=== PATIENT | male | born 1940 | race Caucasian/White ===

== ENCOUNTER → 2017-10-02 07:41 | Outpatient (CLI) | payer MEDICARE, OTHER, SELFPAY ==
[2017-10-02 08:26] LABS: Hemoglobin A1C% w Est Avg Glu 4.9 % (4.0-6.0)
[2017-10-02 08:48] LABS: BUN Creatinine Ratio 21.8 (6-22); Blood Urea Nitrogen 48 mg/dL (9-20); Calcium 8.9 mg/dL (8.4-10.2); Carbon Dioxide 20 mmol/L (22-32); Chloride 99 mmol/L (98-107); Estimated Glomerular Filt Rate 29.3 mL/min (>60); Glucose 60 mg/dL (80-110); HEMOLYSIS < 15 (0-50); Potassium 4.2 mmol/L (3.4-5.1); Sodium 132 mmol/L (137-145)
== END ==
PROVIDERS: Family Provider Internal Medicine; PCP Internal Medicine; Visit Provider Internal Medicine
DX: E11.22 Type 2 diabetes mellitus with diabetic chronic kidney disease (principal); I12.9 Hypertensive chronic kidney disease with stage 1 through stage 4 chronic kidney disease, or unspecified chronic kidney disease; N18.3 Chronic kidney disease, stage 3 (moderate)
CPT/HCPCS: 36415; 80048; 83036

== ENCOUNTER → 2017-12-18 12:27 | Outpatient (CLI) | payer MEDICARE, OTHER, SELFPAY ==
--- NOTE | 2017-12-18 | DI.CT.S_ITS ---
PROCEDURE: CT LUMBAR SPINE WO CON INDICATIONS: ARTHRODESIS TECHNIQUE: Noncontrast 3 mm thick sections acquired from the T12 level to the sacrum. Sagittal and coronal reformats were constructed. For radiation dose reduction, the following was used: automated exposure control. COMPARISON: [facility], CR, SPINE LUMB 2 OR 3VW, 11/26/2014, 11:17. [facility], CR, XR LUMBAR SPINE 2 OR 3 VIEWS, 12/13/2017, 9:17. [facility], MR, L-SPINE W&WO CONTRAST, 05/14/2014, 11:00. FINDINGS: Image quality: Excellent. Bones: Dextroconvex scoliotic curvature is present with apex at L1-2. Posterior fusion is present from L1-L5. Transitional anatomy is present with an appearance of sacralization of the fifth vertebral body. Hardware is intact. It is noted that the left pedicular screw at L4 is along the lateral aspect of the spinal canal. There is trace retrolisthesis of L1 on L2, L3 on L4, L4 on L5. Multilevel significant degenerative endplate changes are present. Compression fracture is present at L2, unchanged. Significant artifact from prosthesis is present, limiting evaluation of spinal canal. There is felt to be a least moderate stenosis at L1-2, mild to moderate at L2-3, moderate L3-4, L4-5. Moderate bilateral foraminal narrowing is present at L1-2, severe bilateral L2-3, L3-4, L4-5 and L5-S1. Severe stenosis is present at T12-L1. Soft tissues: No retroperitoneal masses or hematomas. Visualized aorta is normal in caliber. IMPRESSION: 1. Significant surgical hardware and artifact as above. 2. Multilevel spinal stenosis as above secondary to retrolisthesis and facet arthropathy. 3. Significant multilevel foraminal narrowing secondary to facet arthropathy. Dictated by: Rica Luke M.D. on 12/18/2017 at 16:34 Approved by: Rica Luke M.D. on 12/18/2017 at 16:49
== END ==
PROVIDERS: Family Provider Internal Medicine; PCP Internal Medicine; Visit Provider Orthopaedic Surgery Orthopaedic Surgery of the Spine
DX: M48.061 Spinal stenosis, lumbar region without neurogenic claudication (principal); M47.816 Spondylosis without myelopathy or radiculopathy, lumbar region; M48.05 Spinal stenosis, thoracolumbar region
CPT/HCPCS: 72131

== ENCOUNTER → 2018-04-02 10:02 | Outpatient (CLI) | payer MEDICARE, OTHER, SELFPAY ==
[2018-04-02 11:22] LABS: Hemoglobin A1C% w Est Avg Glu 5.6 % (4.0-6.0)
[2018-04-02 12:02] LABS: Alanine Aminotransferase 34 IU/L (21-72); Albumin 3.8 g/dL (3.5-5.0); Albumin Globulin Ratio 1.4 (1.0-2.8); Alkaline Phosphatase 138 U/L (38-126); Aspartate Aminotransferase 36 IU/L (17-59); Bilirubin Total 0.6 mg/dL (0.2-1.3); Blood Urea Nitrogen 40 mg/dL (9-20); Calcium 9.3 mg/dL (8.4-10.2); Carbon Dioxide 25 mmol/L (22-32); Chloride 104 mmol/L (98-107); Estimated Glomerular Filt Rate 32.7 mL/min (>60); Globulin 2.8 g/dL (1.7-4.1); Glucose 207 mg/dL (80-110); HEMOLYSIS < 15 (0-50); Potassium 4.7 mmol/L (3.4-5.1); Sodium 143 mmol/L (137-145); Total Protein 6.6 g/dL (6.3-8.2)
== END ==
PROVIDERS: Family Provider Internal Medicine; PCP Internal Medicine; Visit Provider Internal Medicine
DX: E11.9 Type 2 diabetes mellitus without complications (principal); E78.2 Mixed hyperlipidemia; I10 Essential (primary) hypertension; N18.3 Chronic kidney disease, stage 3 (moderate)
CPT/HCPCS: 36415; 80053; 83036

== ENCOUNTER → 2018-10-01 10:45 | Outpatient (CLI) | payer MEDICARE, OTHER, SELFPAY ==
[2018-10-01 13:10] LABS: Hemoglobin A1C% w Est Avg Glu 5.2 % (4.0-6.0)
[2018-10-01 17:36] LABS: Alanine Aminotransferase 20 IU/L (21-72); Albumin 3.2 g/dL (3.5-5.0); Albumin Globulin Ratio 1.2 (1.0-2.8); Alkaline Phosphatase 107 U/L (38-126); Aspartate Aminotransferase 27 IU/L (17-59); BUN Creatinine Ratio 24.4 (6-22); Bilirubin Total 0.6 mg/dL (0.2-1.3); Blood Urea Nitrogen 61 mg/dL (9-20); Calcium 9.1 mg/dL (8.4-10.2); Carbon Dioxide 21 mmol/L (22-32); Chloride 104 mmol/L (98-107); Estimated Glomerular Filt Rate 25.2 mL/min (>60); Globulin 2.7 g/dL (1.7-4.1); Glucose 80 mg/dL (80-110); HEMOLYSIS < 15 (0-50); Potassium 5.1 mmol/L (3.4-5.1); Sodium 135 mmol/L (137-145); Total Protein 5.9 g/dL (6.3-8.2)
== END ==
PROVIDERS: Family Provider Internal Medicine; PCP Internal Medicine; Visit Provider Internal Medicine
DX: E11.9 Type 2 diabetes mellitus without complications (principal); N18.3 Chronic kidney disease, stage 3 (moderate); I12.9 Hypertensive chronic kidney disease with stage 1 through stage 4 chronic kidney disease, or unspecified chronic kidney disease
CPT/HCPCS: 36415; 80053; 83036

== ENCOUNTER → 2018-10-21 07:11 | Outpatient (CLI) | payer MEDICARE, OTHER, SELFPAY ==
[2018-10-21 08:22] LABS: Add Manual Diff / Slide Review NO; Basophils Absolute Auto 0 /uL (0-100); Basophils Percent Auto 0.8 % (0-2); Eosinophils Absolute Auto 200 /uL (0-450); Eosinophils Percent Auto 3.5 % (2-4); Hematocrit 34.5 % (41-53); Hemoglobin 11.5 g/dL (13.5-17.5); Lymphocytes Absolute Auto 1900 /uL (1100-4500); Lymphocytes Percent Auto 30.2 % (25-40); Mean Corpuscular HGB Conc 33.3 % (30-36); Mean Corpuscular Hemoglobin 32.8 PG (26-34); Mean Corpuscular Volume 98.8 fL (80-100); Monocytes Absolute Auto 500 /uL (0-900); Monocytes Percent Auto 7.3 % (3-14); Neutrophils Absolute Auto 3700 /uL (1500-7000); Neutrophils Percent Auto 58.2 % (50-75); Platelet Count 95 X10^3/uL (150-400); Red Blood Cell Count 3.49 X10^6/uL (4.5-5.9); Red Cell Distribution Width 15.9 % (11.6-14.8); White Blood Cell Count 6.3 X10^3/uL (4.5-11.0)
[2018-10-21 08:33] LABS: Blood Urea Nitrogen 55 mg/dL (9-20); Carbon Dioxide 20 mmol/L (22-32); Chloride 104 mmol/L (98-107); Estimated Glomerular Filt Rate 29.2 mL/min (>60); Glucose 65 mg/dL (80-110); HEMOLYSIS < 15 (0-50); Potassium 4.6 mmol/L (3.4-5.1); Sodium 135 mmol/L (137-145)
[2018-10-21 08:47] LABS: Creatinine Urine Random 25.5 mg/dL; Protein (Total) Urine Random 57 mg/dL (0-12); Protein Creatinine Ratio Urine 2.23 GRAM/24H
== END ==
PROVIDERS: Family Provider Internal Medicine; PCP Internal Medicine; Visit Provider Student in an Organized Health Care Education/Training Program
DX: N05.9 Unspecified nephritic syndrome with unspecified morphologic changes (principal); D70.9 Neutropenia, unspecified; R80.9 Proteinuria, unspecified; R53.83 Other fatigue
CPT/HCPCS: 36415; 80048; 82570; 84156; 85025

== ENCOUNTER → 2018-11-14 09:46 | Outpatient (CLI) | payer MEDICARE, OTHER, SELFPAY ==
[2018-11-14 10:08] LABS: Bacteria Urine None Seen
[2018-11-14 10:52] LABS: B Type Natriuretic Peptide 1710 (<100)
[2018-11-14 12:12] LABS: Hepatitis B Surface Antigen NEGATIVE s/c (NEGATIVE)
[2018-11-14 12:26] LABS: Hep C Virus Ab w/Reflex Quant NEGATIVE s/c (NEGATIVE)
[2018-11-14 12:59] LABS: Appearance Urine UA CLEAR; Bilirubin Urine UA NEGATIVE (NEGATIVE); Color Urine UA YELLOW; Glucose Urine UA NEGATIVE (Negative); Ketones Urine UA NEGATIVE (NEGATIVE); Leukocyte Esterase Urine UA NEGATIVE (NEGATIVE); Nitrite Urine UA NEGATIVE (Negative); Occult Blood Urine UA NEGATIVE (Negative); Protein Urine UA 2+ (Negative); Urobilinogen Urine UA 0.2 E.U./dL (0.2)
[2018-11-14 13:04] LABS: Hyaline Casts Urine 10-30/LPF; RBC Urine 0-1/HPF (0-5/HPF); Squamous Epithelial Cell Urine 0-1 /HPF (0-5/HPF); WBC Urine 0-1/HPF (0-5/HPF)
[2018-11-14 13:05] LABS: Culture Indicated Urine Cult Not Indicated
[2018-11-16 13:55] LABS: Complement C3 73 mg/dL (82-185)
[2018-11-16 14:10] LABS: Free Kappa Light Chain 113.4 mg/L (3.3-19.4); Free Kappa/ Lambda Ratio 1.42 (0.26-1.65); Free Lambda 79.6 mg/L (5.7-26.3)
[2018-11-16 18:30] LABS: Hepatitis B Core Antibody Nonreactive (Nonreactive)
[2018-11-17 14:03] LABS: DNA (DS) Antibody 1 IU/mL (< 5)
[2018-11-17 17:40] LABS: ANA Screen, IFA Negative (Negative)
[2018-11-18 08:07] LABS: Hepatitis B Surf Ab Qualitativ Borderline (Nonreactive)
[2018-11-18 14:12] LABS: Albumin 84 %; Protein/ Creatinine Ratio 1901 mg/g creat (22-128); Total Urine Protein 100 mg/dL (5-25); Urine Creatinine, Random 53 mg/dL (20-320)
[2018-11-18 21:39] LABS: ANCA Screen Negative (Negative)
[2018-11-20 13:43] LABS: Albumin 3.3 g/dL (3.8-4.8); Alpha 1 Globulin 0.3 g/dL (0.2-0.3); Alpha 2 Globulin 0.7 g/dL (0.5-0.9); Beta 1 Globulin 0.3 g/dL (0.4-0.6); Gamma Globulin 1.1 g/dL (0.8-1.7); Protein, Total 6.1 g/dL (6.1-8.1)
== END ==
PROVIDERS: PCP Internal Medicine; Visit Provider Student in an Organized Health Care Education/Training Program
DX: M31.30 Wegener's granulomatosis without renal involvement (principal); M32.10 Systemic lupus erythematosus, organ or system involvement unspecified; I50.32 Chronic diastolic (congestive) heart failure; B19.10 Unspecified viral hepatitis B without hepatic coma; B17.10 Acute hepatitis C without hepatic coma; N00.9 Acute nephritic syndrome with unspecified morphologic changes; D47.2 Monoclonal gammopathy; N30.00 Acute cystitis without hematuria; R80.9 Proteinuria, unspecified
CPT/HCPCS: 36415; 81001; 82784; 83520; 83880; 83883; 84155; 84156; 84165; 84166; 86021; 86038; 86160; 86225; 86334; 86335; 86704; 86706; 86803; 87340

== ENCOUNTER → 2018-11-21 10:30 | Outpatient (CLI) | payer MEDICARE, OTHER, SELFPAY ==
--- NOTE | 2018-11-21 | DI.US.S_ITS ---
PROCEDURE: US RENAL COMPLETE INDICATIONS: STAGE 4 KIDNEY DISEASE TECHNIQUE: Real-time scanning was performed of the kidneys and bladder, with image documentation. COMPARISON: None. FINDINGS: Kidneys: Kidneys are small in size. Right kidney measures 10.7 cm long; left kidney measures 10.6 cm long. Right renal cortical thickness is 1.9 cm; left renal cortical thickness is 1.6 cm. Renal cortical echotexture is normal. No hydronephrosis. Nonobstructive right renal calculi measuring up to 6 mm. There is 1.4 cm simple appearing right renal cyst. Nonobstructive 9 mm calculus in the upper pole left kidney. There is also an 8 mm simple left renal cyst. Bladder: Pre-void bladder volume is 120 mL. Post-void residual is 48 mL. Pre-void images demonstrate no intraluminal masses or stones. On pre-void images, both of the ureteral jets are noted with color Doppler interrogation. (Of note, ureteral jets may not be detectable in up to 25% of cases due to insufficient differences in specific gravity between ureteral and bladder urine). Miscellaneous: No free pelvic fluid. IMPRESSION: Bilateral nonobstructing renal calculi. Bilateral simple renal cysts. No hydronephrosis. Post void residual measures 48 cc. Dictated by: Joaquin Candelaria M.D. on 11/21/2018 at 16:54 Approved by: Joaquin Candelaria M.D. on 11/21/2018 at 16:57
== END ==
PROVIDERS: PCP Internal Medicine; Visit Provider Student in an Organized Health Care Education/Training Program
DX: N18.4 Chronic kidney disease, stage 4 (severe) (principal); N20.0 Calculus of kidney; N28.1 Cyst of kidney, acquired
CPT/HCPCS: 76770

== ENCOUNTER → 2018-12-10 10:07 | Outpatient (CLI) | payer MEDICARE, OTHER, SELFPAY ==
[2018-12-10 10:23] LABS: Bacteria Urine None Seen; WBC Urine None Seen (0-5/HPF)
[2018-12-10 11:07] LABS: HEMOLYSIS < 15 (0-50); Iron 80 ug/dL (49-181)
[2018-12-10 11:08] LABS: BUN Creatinine Ratio 23.8 (6-22); Blood Urea Nitrogen 62 mg/dL (9-20); Calcium 9.1 mg/dL (8.4-10.2); Carbon Dioxide 21 mmol/L (22-32); Chloride 99 mmol/L (98-107); Estimated Glomerular Filt Rate 24.1 mL/min (>60); Glucose 130 mg/dL (80-110); HEMOLYSIS < 15 (0-50); Phosphorous 7.1 mg/dL (2.3-3.7); Potassium 4.3 mmol/L (3.4-5.1); Sodium 133 mmol/L (137-145)
[2018-12-10 11:14] LABS: B Type Natriuretic Peptide 1390 (<100)
[2018-12-10 11:19] LABS: Percent Iron Saturation 52 % (20-50); Total Iron Binding Capacity 154 ug/dL (261-462); Transferrin 107 mg/dL (206-381)
[2018-12-10 11:27] LABS: Appearance Urine UA CLEAR; Bilirubin Urine UA NEGATIVE (NEGATIVE); Color Urine UA YELLOW; Glucose Urine UA NEGATIVE (Negative); Ketones Urine UA NEGATIVE (NEGATIVE); Leukocyte Esterase Urine UA NEGATIVE (NEGATIVE); Nitrite Urine UA NEGATIVE (Negative); Occult Blood Urine UA TRACE-LYSED (Negative); Protein Urine UA 2+ (Negative); Urobilinogen Urine UA 0.2 E.U./dL (0.2)
[2018-12-10 11:32] LABS: Creatinine Urine Random 35.4 mg/dL
[2018-12-10 11:39] LABS: Ferritin 98.4 ng/mL (17.9-464)
[2018-12-10 12:02] LABS: Culture Indicated Urine Cult Not Indicated; RBC Urine 0-1/HPF (0-5/HPF); Squamous Epithelial Cell Urine 0-1 /HPF (0-5/HPF)
[2018-12-10 13:38] LABS: Protein (Total) Urine Random 90 mg/dL (0-12); Protein Creatinine Ratio Urine 2.54 GRAM/24H
[2018-12-12 14:33] LABS: Parathyroid Hormone Int 397 pg/mL (14-64)
== END ==
PROVIDERS: Family Provider Internal Medicine; PCP Internal Medicine; Visit Provider Student in an Organized Health Care Education/Training Program
DX: N05.9 Unspecified nephritic syndrome with unspecified morphologic changes (principal); I50.32 Chronic diastolic (congestive) heart failure; D50.0 Iron deficiency anemia secondary to blood loss (chronic); E83.30 Disorder of phosphorus metabolism, unspecified; N25.81 Secondary hyperparathyroidism of renal origin; N30.00 Acute cystitis without hematuria; R80.9 Proteinuria, unspecified
CPT/HCPCS: 36415; 80048; 81001; 82570; 82728; 83540; 83550; 83880; 83970; 84100; 84156

== ENCOUNTER → 2019-03-17 09:40 | Outpatient (CLI) | payer MEDICARE, OTHER, SELFPAY ==
[2019-03-17 10:57] LABS: Hematocrit 35.4 % (41-53); Hemoglobin 11.9 g/dL (13.5-17.5)
[2019-03-17 12:17] LABS: Creatinine Urine Random 58.3 mg/dL
[2019-03-17 12:20] LABS: BUN Creatinine Ratio 24.3 (6-22); Blood Urea Nitrogen 56 mg/dL (9-20); Calcium 9.5 mg/dL (8.4-10.2); Carbon Dioxide 22 mmol/L (22-32); Chloride 107 mmol/L (98-107); Estimated Glomerular Filt Rate 27.8 mL/min (>60); Glucose 93 mg/dL (80-110); HEMOLYSIS < 15 (0-50); Potassium 3.8 mmol/L (3.4-5.1); Sodium 141 mmol/L (137-145)
[2019-03-17 12:23] LABS: Protein (Total) Urine Random 250 mg/dL (0-12); Protein Creatinine Ratio Urine 4.28 GRAM/24H
[2019-03-21 15:45] LABS: Parathyroid Hormone Int 155 pg/mL (14-64)
== END ==
PROVIDERS: Family Provider Internal Medicine; PCP Internal Medicine; Visit Provider Student in an Organized Health Care Education/Training Program
DX: N05.9 Unspecified nephritic syndrome with unspecified morphologic changes (principal); D64.9 Anemia, unspecified; N25.81 Secondary hyperparathyroidism of renal origin; R80.9 Proteinuria, unspecified
CPT/HCPCS: 36415; 80048; 82570; 83970; 84156; 85014; 85018

== ENCOUNTER → 2019-04-02 10:17 | Outpatient (CLI) | payer MEDICARE, OTHER, SELFPAY ==
[2019-04-02 10:57] LABS: Hemoglobin A1C% w Est Avg Glu 5.2 % (4.0-6.0)
[2019-04-02 11:16] LABS: BUN Creatinine Ratio 28.3 (6-22); Blood Urea Nitrogen 65 mg/dL (9-20); Calcium 9.3 mg/dL (8.4-10.2); Carbon Dioxide 23 mmol/L (22-32); Chloride 103 mmol/L (98-107); Estimated Glomerular Filt Rate 27.8 mL/min (>60); Glucose 127 mg/dL (80-110); HEMOLYSIS < 15 (0-50); Potassium 4.1 mmol/L (3.4-5.1); Sodium 136 mmol/L (137-145)
== END ==
PROVIDERS: PCP Internal Medicine; Visit Provider Internal Medicine
DX: E11.9 Type 2 diabetes mellitus without complications (principal); I10 Essential (primary) hypertension
CPT/HCPCS: 36415; 80048; 83036

== ENCOUNTER → 2019-04-09 10:01 | Outpatient (CLI) | payer MEDICARE, OTHER, SELFPAY | PROVIDERS: PCP Internal Medicine; Visit Provider Internal Medicine | DX: M81.0 Age-related osteoporosis without current pathological fracture (principal); E11.22 Type 2 diabetes mellitus with diabetic chronic kidney disease; N18.3 Chronic kidney disease, stage 3 (moderate) | CPT/HCPCS: 77080; 77081 ==

== ENCOUNTER → 2019-05-06 14:42 | Outpatient (CLI) | payer MEDICARE, OTHER, SELFPAY ==
[2019-05-06 15:20] LABS: Add Manual Diff / Slide Review NO; Basophils Absolute Auto 100 /uL (0-100); Basophils Percent Auto 1.2 % (0-2); Eosinophils Absolute Auto 100 /uL (0-450); Eosinophils Percent Auto 1.8 % (2-4); Hematocrit 37.8 % (41-53); Hemoglobin 12.5 g/dL (13.5-17.5); Lymphocytes Absolute Auto 1600 /uL (1100-4500); Lymphocytes Percent Auto 25.6 % (25-40); Mean Corpuscular HGB Conc 33.2 % (30-36); Mean Corpuscular Hemoglobin 33.5 PG (26-34); Mean Corpuscular Volume 100.9 fL (80-100); Monocytes Absolute Auto 400 /uL (0-900); Monocytes Percent Auto 6.4 % (3-14); Neutrophils Absolute Auto 4000 /uL (1500-7000); Platelet Count 118 X10^3/uL (150-400); Red Blood Cell Count 3.74 X10^6/uL (4.5-5.9); Red Cell Distribution Width 15.6 % (11.6-14.8); White Blood Cell Count 6.2 X10^3/uL (4.5-11.0)
[2019-05-06 15:35] LABS: Alanine Aminotransferase 33 IU/L (<50); Albumin Globulin Ratio 1.3 (1.0-2.8); Alkaline Phosphatase 115 U/L (38-126); Aspartate Aminotransferase 55 IU/L (17-59); Bilirubin Total 0.6 mg/dL (0.2-1.3); Blood Urea Nitrogen 60 mg/dL (9-20); Calcium 9.5 mg/dL (8.4-10.2); Carbon Dioxide 25 mmol/L (22-32); Chloride 103 mmol/L (98-107); Estimated Glomerular Filt Rate 26.5 mL/min (>60); Globulin 3.2 g/dL (1.7-4.1); Glucose 130 mg/dL (80-110); HEMOLYSIS < 15 (0-50); Potassium 4.2 mmol/L (3.4-5.1); Sodium 139 mmol/L (137-145); Total Protein 7.2 g/dL (6.3-8.2)
[2019-05-08 14:12] LABS: Free Kappa Light Chain 108.5 mg/L (3.3-19.4); Free Kappa/ Lambda Ratio 1.25 (0.26-1.65); Free Lambda 86.8 mg/L (5.7-26.3)
[2019-05-09 23:00] LABS: Albumin 3.6 g/dL (3.8-4.8); Alpha 1 Globulin 0.3 g/dL (0.2-0.3); Alpha 2 Globulin 0.8 g/dL (0.5-0.9); Beta 1 Globulin 0.3 g/dL (0.4-0.6); Gamma Globulin 1.2 g/dL (0.8-1.7); Protein, Total 6.6 g/dL (6.1-8.1)
== END ==
PROVIDERS: PCP Internal Medicine
DX: D47.2 Monoclonal gammopathy (principal)
CPT/HCPCS: 36415; 80053; 83883; 84155; 84165; 85025

== ENCOUNTER → 2019-08-06 | Outpatient (CLI) | payer MEDICARE, OTHER, SELFPAY | PROVIDERS: PCP Internal Medicine; Referring Provider Student in an Organized Health Care Education/Training Program; Visit Provider Student in an Organized Health Care Education/Training Program ==

== ENCOUNTER → 2019-09-03 10:34 | Outpatient (CLI) | payer MEDICARE, OTHER, SELFPAY ==
[2019-09-03 11:39] LABS: BUN Creatinine Ratio 21.5 (6-22); Blood Urea Nitrogen 71 mg/dL (9-20); Calcium 9.2 mg/dL (8.4-10.2); Carbon Dioxide 21 mmol/L (22-32); Chloride 104 mmol/L (98-107); Estimated Glomerular Filt Rate 18.3 mL/min (>60); Glucose 163 mg/dL (80-110); HEMOLYSIS < 15 (0-50); Potassium 4.9 mmol/L (3.4-5.1); Sodium 137 mmol/L (137-145)
== END ==
PROVIDERS: PCP Internal Medicine; Referring Provider Student in an Organized Health Care Education/Training Program; Visit Provider Student in an Organized Health Care Education/Training Program
DX: N05.9 Unspecified nephritic syndrome with unspecified morphologic changes (principal)
CPT/HCPCS: 36415; 80048

== ENCOUNTER → 2019-09-12 11:52 | Outpatient (CLI) | payer MEDICARE, OTHER, SELFPAY ==
--- NOTE | 2019-09-12 | DI.US.S_ITS ---
PROCEDURE: US RENAL COMPLETE INDICATIONS: ACUTE RENAL FAILURE TECHNIQUE: Real-time scanning was performed of the kidneys and bladder, with image documentation. COMPARISON: [facility], , RENAL COMPLETE, 11/21/2018, 10:47. FINDINGS: Kidneys: Kidneys are normal in size. Right kidney measures 10.5 cm long; left kidney measures 9.2 cm long. Right renal cortical thickness is 1.4 cm; left renal cortical thickness is 1.4 cm. Renal cortical echotexture is normal. No hydronephrosis. Echogenic foci are present bilaterally suggesting nonobstructing calculi. Bladder: Pre-void bladder volume is 111 mL. Post-void residual is 73 mL. Pre-void images demonstrate no intraluminal masses or stones. On pre-void images, bilateral ureteral jets are noted with color Doppler interrogation. (Of note, ureteral jets may not be detectable in up to 25% of cases due to insufficient differences in specific gravity between ureteral and bladder urine). Miscellaneous: No free pelvic fluid. IMPRESSION: 1. No hydronephrosis. 2. Nonobstructing nephrolithiasis. 3. Large post void residual. Dictated by: Kassi London M.D. on 09/12/2019 at 15:21 Approved by: Kassi London M.D. on 09/12/2019 at 15:23
== END ==
PROVIDERS: PCP Internal Medicine; Referring Provider Internal Medicine; Visit Provider Student in an Organized Health Care Education/Training Program
DX: N17.9 Acute kidney failure, unspecified (principal); N20.0 Calculus of kidney
CPT/HCPCS: 76770

== ENCOUNTER → 2019-09-22 10:42 | Outpatient (CLI) | payer MEDICARE, OTHER, SELFPAY ==
[2019-09-22 12:10] LABS: BUN Creatinine Ratio 18.3 (6-22); Blood Urea Nitrogen 61 mg/dL (9-20); Calcium 9.6 mg/dL (8.4-10.2); Carbon Dioxide 19 mmol/L (22-32); Chloride 106 mmol/L (98-107); Glucose 111 mg/dL (80-110); HEMOLYSIS < 15 (0-50); Potassium 4.6 mmol/L (3.4-5.1); Sodium 136 mmol/L (137-145)
[2019-09-22 12:13] LABS: Hematocrit 30.5 % (41-53); Hemoglobin 10.3 g/dL (13.5-17.5)
[2019-09-22 12:18] LABS: NT-proBNP (BNP-Adult 18+) 5860 pg/mL (<450)
== END ==
PROVIDERS: PCP Internal Medicine; Referring Provider Student in an Organized Health Care Education/Training Program; Visit Provider Student in an Organized Health Care Education/Training Program
DX: N05.9 Unspecified nephritic syndrome with unspecified morphologic changes (principal); I50.32 Chronic diastolic (congestive) heart failure; D64.9 Anemia, unspecified
CPT/HCPCS: 36415; 80048; 83880; 85014; 85018

== ENCOUNTER → 2019-12-10 10:03 | Outpatient (CLI) | payer MEDICARE, OTHER, SELFPAY ==
--- NOTE | 2019-12-10 10:11 | DI.CT.S_ITS ---
PROCEDURE: CT LUMBAR SPINE WO CON INDICATIONS: Low back pain TECHNIQUE: Noncontrast 3 mm thick sections acquired from the T12 level to the sacrum. Sagittal and coronal reformats were constructed. For radiation dose reduction, the following was used: automated exposure control. COMPARISON: [facility] [place], CR, XR LUMBAR SPINE 2 OR 3 VIEWS, 12/04/2019, 13:41. [facility], CT, CT LUMBAR SPINE WO CON, 12/18/2017, 12:27. [facility] [place], CR, XR LUMBAR SPINE 2 OR 3VW, 05/13/2015, 10:45. FINDINGS: Image quality: Excellent. Bones: Transitional anatomy noted with sacralization of the L5 vertebral body. Postsurgical changes compatible with L1-L5 fusion and L5 laminectomy are stable. Orthopedic hardware remains intact. Lucencies are noted adjacent to the bilateral L5 transpedicular screws which are stable compared to prior examination and may represent hardware loosening. There is mild L1-L2 , L3-L4 and L4-L5 retrolisthesis. There is There is approximately 22? of convex right lumbar spine scoliosis. No acute vertebral body compression fractures. No suspicious lytic or blastic bony lesions. No pars defects. T12-L1: Loss of disc height. Vacuum disc phenomenon. Mild to moderate bilateral facet hypertrophy. Moderate ligamentum flavum hypertrophy. Mild to moderate narrowing of the central canal. Mild right and moderate left neural foraminal narrowing. No neural compression. L1-L2: Status post fusion. Moderate bilateral facet hypertrophy. Moderate narrowing of the central canal. Moderate right and severe left neural foraminal narrowing with compression of the exiting left L1 nerve root. L2-L3: Status post fusion. Moderate bilateral facet hypertrophy. Moderate narrowing of the central canal. Severe bilateral neural foraminal narrowing with compression of the exiting L2 nerve roots. L3-L4: Status post fusion. [id number] bilateral facet hypertrophy. Mild to moderate narrowing of the central canal. Moderate right and severe left neural foraminal narrowing with compression of the exiting left L3 nerve root. L4-L5: Status post fusion. Mild bilateral facet hypertrophy. Mild to moderate narrowing of the central canal. Severe bilateral neural foraminal narrowing with compression of the exiting L4 nerve roots. L5-S1: Status post fusion. Mild bilateral facet hypertrophy. No central stenosis. Severe right neural foraminal narrowing with compression of the exiting right L5 nerve root. Left neural foramen is fully patent. Soft tissues: No retroperitoneal masses or hematomas. Visualized aorta is normal in caliber. IMPRESSION: 1. Stable postsurgical changes. 2. Convex right scoliosis. 3. Grade 1 L2-L3, L3-L4 and L4-L5 degenerative spondylolisthesis. Four. Multilevel degenerative disease. 5. Multilevel facet arthropathy. 5. No significant central stenosis. 6. Severe left L1-L2 and L3-L4 neural foraminal narrowing with compression of the exiting left L1 nerve root in the exiting left L3 nerve root. Severe bilateral L2-L3 and L4-L5 neural foraminal narrowing with compression of the exiting bilateral L2 nerve roots in the exiting bilateral L4 nerve roots. Severe right L5-S1 neural foraminal narrowing with compression of the exiting right L5 nerve root. Dictated by: Ashleigh Johns MD, PhD on 12/10/2019 at 12:14 Approved by: Ashleigh Johns MD, PhD on 12/10/2019 at 12:29
== END ==
PROVIDERS: PCP Internal Medicine; Referring Provider Orthopaedic Surgery Orthopaedic Surgery of the Spine; Visit Provider Orthopaedic Surgery Orthopaedic Surgery of the Spine
DX: M54.5 Low back pain (principal); M43.16 Spondylolisthesis, lumbar region; M51.36 Other intervertebral disc degeneration, lumbar region; M47.816 Spondylosis without myelopathy or radiculopathy, lumbar region; M47.817 Spondylosis without myelopathy or radiculopathy, lumbosacral region; M41.86 Other forms of scoliosis, lumbar region; M48.061 Spinal stenosis, lumbar region without neurogenic claudication; M48.07 Spinal stenosis, lumbosacral region; Z98.1 Arthrodesis status
CPT/HCPCS: 72131

== ENCOUNTER → 2019-12-18 10:20 | Outpatient (CLI) | payer MEDICARE, OTHER, SELFPAY ==
[2019-12-18 12:05] LABS: Hemoglobin A1C% w Est Avg Glu 5.8 % (4.0-6.0)
[2019-12-18 12:13] LABS: Alanine Aminotransferase 22 IU/L (<50); Albumin 4.1 g/dL (3.5-5.0); Albumin Globulin Ratio 1.2 (1.0-2.8); Alkaline Phosphatase 86 U/L (38-126); Aspartate Aminotransferase 30 IU/L (17-59); BUN Creatinine Ratio 25.3 (6-22); Bilirubin Total 0.6 mg/dL (0.2-1.3); Blood Urea Nitrogen 87 mg/dL (9-20); Calcium 10.6 mg/dL (8.4-10.2); Carbon Dioxide 21 mmol/L (22-32); Chloride 104 mmol/L (98-107); Estimated Glomerular Filt Rate 17.4 mL/min (>60); Globulin 3.5 g/dL (1.7-4.1); Glucose 136 mg/dL (80-110); HEMOLYSIS < 15 (0-50); Sodium 137 mmol/L (137-145); Total Protein 7.6 g/dL (6.3-8.2)
[2019-12-18 12:14] LABS: Potassium 3.9 mmol/L (3.4-5.1)
== END ==
PROVIDERS: PCP Internal Medicine; Referring Provider Student in an Organized Health Care Education/Training Program; Visit Provider Internal Medicine
DX: N05.9 Unspecified nephritic syndrome with unspecified morphologic changes (principal); E11.9 Type 2 diabetes mellitus without complications; I10 Essential (primary) hypertension; N18.4 Chronic kidney disease, stage 4 (severe)
CPT/HCPCS: 36415; 80053; 83036

== ENCOUNTER → 2019-12-25 10:18 | Outpatient (CLI) | payer MEDICARE, OTHER, SELFPAY ==
[2019-12-25 11:40] LABS: BUN Creatinine Ratio 24.8 (6-22); Blood Urea Nitrogen 96 mg/dL (9-20); Calcium 8.5 mg/dL (8.4-10.2); Carbon Dioxide 15 mmol/L (22-32); Chloride 108 mmol/L (98-107); Estimated Glomerular Filt Rate 15.2 mL/min (>60); Glucose 199 mg/dL (80-110); HEMOLYSIS < 15 (0-50); Potassium 4.5 mmol/L (3.4-5.1); Sodium 137 mmol/L (137-145)
== END ==
PROVIDERS: PCP Internal Medicine; Referring Provider Student in an Organized Health Care Education/Training Program; Visit Provider Student in an Organized Health Care Education/Training Program
DX: N05.9 Unspecified nephritic syndrome with unspecified morphologic changes (principal)
CPT/HCPCS: 36415; 80048

== ENCOUNTER → 2020-01-30 11:03 | Outpatient (CLI) | payer MEDICARE, OTHER, SELFPAY ==
[2020-01-30 11:54] LABS: Hemoglobin 10.4 g/dL (13.5-17.5)
[2020-01-30 12:24] LABS: Blood Urea Nitrogen 63 mg/dL (9-20); Calcium 8.7 mg/dL (8.4-10.2); Carbon Dioxide 20 mmol/L (22-32); Chloride 107 mmol/L (98-107); Estimated Glomerular Filt Rate 24.9 mL/min (>60); Glucose 153 mg/dL (80-110); HEMOLYSIS < 15 (0-50); Potassium 3.8 mmol/L (3.4-5.1); Sodium 138 mmol/L (137-145)
[2020-01-30 12:31] LABS: NT-proBNP (BNP-Adult 18+) 7540 pg/mL (<450)
== END ==
PROVIDERS: PCP Internal Medicine; Referring Provider Student in an Organized Health Care Education/Training Program; Visit Provider Student in an Organized Health Care Education/Training Program
DX: N05.9 Unspecified nephritic syndrome with unspecified morphologic changes (principal); I50.32 Chronic diastolic (congestive) heart failure; D64.9 Anemia, unspecified
CPT/HCPCS: 36415; 80048; 83880; 85014; 85018

== ENCOUNTER → 2020-03-01 10:48 | Outpatient (CLI) | payer MEDICARE, OTHER, SELFPAY ==
[2020-03-01 12:24] LABS: Add Manual Diff / Slide Review NO; Basophils Absolute Auto 100 /uL (0-100); Basophils Percent Auto 0.8 % (0-2); Eosinophils Absolute Auto 200 /uL (0-450); Eosinophils Percent Auto 2.4 % (2-4); Hematocrit 36.2 % (41-53); Hemoglobin 11.8 g/dL (13.5-17.5); Lymphocytes Absolute Auto 2400 /uL (1100-4500); Lymphocytes Percent Auto 37.3 % (25-40); Mean Corpuscular HGB Conc 32.5 % (30-36); Mean Corpuscular Hemoglobin 32.8 PG (26-34); Monocytes Absolute Auto 400 /uL (0-900); Monocytes Percent Auto 6.1 % (3-14); Neutrophils Absolute Auto 3400 /uL (1500-7000); Neutrophils Percent Auto 53.4 % (50-75); Platelet Count 136 X10^3/uL (150-400); Red Blood Cell Count 3.59 X10^6/uL (4.5-5.9); Red Cell Distribution Width 15.7 % (11.6-14.8); White Blood Cell Count 6.3 X10^3/uL (4.5-11.0)
[2020-03-01 12:47] LABS: Alanine Aminotransferase 20 IU/L (<50); Albumin Globulin Ratio 1.3 (1.0-2.8); Alkaline Phosphatase 104 U/L (38-126); Aspartate Aminotransferase 30 IU/L (17-59); BUN Creatinine Ratio 24.4 (6-22); Bilirubin Total 0.5 mg/dL (0.2-1.3); Blood Urea Nitrogen 64 mg/dL (9-20); Calcium 9.2 mg/dL (8.4-10.2); Carbon Dioxide 25 mmol/L (22-32); Chloride 104 mmol/L (98-107); Estimated Glomerular Filt Rate 23.8 mL/min (>60); Globulin 3.2 g/dL (1.7-4.1); Glucose 113 mg/dL (80-110); HEMOLYSIS < 15 (0-50); Potassium 3.6 mmol/L (3.4-5.1); Sodium 139 mmol/L (137-145); Total Protein 7.2 g/dL (6.3-8.2)
[2020-03-01 13:23] LABS: TSH w/ Reflex to FT4 3.31 uIU/mL (0.47-4.68)
== END ==
PROVIDERS: PCP Internal Medicine; Referring Provider Internal Medicine; Visit Provider Internal Medicine
DX: D47.2 Monoclonal gammopathy (principal); I10 Essential (primary) hypertension; N18.4 Chronic kidney disease, stage 4 (severe)
CPT/HCPCS: 36415; 80053; 84443; 85025

== ENCOUNTER 2020-06-29 12:33 | Emergency (ER) | payer MEDICARE, OTHER, SELFPAY ==
[2020-06-29 12:34] VITALS: BP 177/83; PULSE 95; RESP 14; TEMP 36.9; O2SAT 100; BMI 22.0
--- NOTE | 2020-06-29 12:50 | DI.RAD.S_ITS ---
PROCEDURE: XR FOOT RT MIN 3V INDICATIONS: foot injury TECHNIQUE: 3 views of the foot were acquired. COMPARISON: None. FINDINGS: Bones: No fractures or dislocations. No suspicious bony lesions. Diffuse osteopenia is present. A prominent midfoot as well as talocalcaneal degenerative narrowing is present. Soft tissues: No tibiotalar joint effusion. Achilles tendon appears normal. Prominent vascular calcifications. IMPRESSION: 1. Osteopenia and degenerative change. 2. No visualized acute fracture or dislocation. However, if clinical concern and/or pain persist, short interval imaging followup in 7-10 days is recommended, as occult injury cannot be definitively excluded. Dictated by: Rica Luke M.D. on 06/29/2020 at 12:32 Approved by: Rica Luke M.D. on 06/29/2020 at 12:34
--- NOTE | 2020-06-29 12:57 | DI.RAD.S_ITS ---
PROCEDURE: XR ANKLE RT MIN 3V INDICATIONS: pain sp fall TECHNIQUE: 3 views of the ankle were acquired. COMPARISON: None. FINDINGS: Bones: No fractures or dislocations. Ankle mortise is normally aligned. No suspicious bony lesions. Soft tissues: No tibiotalar joint effusion. Achilles tendon appears normal. Small vessel calcifications are prominent, indicating likelihood of longstanding diabetes. IMPRESSION: No trauma found. Extensive small vessel calcifications consistent longstanding diabetes. No area osteomyelitis suspected at the visualized hindfoot and midfoot. Dictated by: Wallace Hernandez M.D. on 06/29/2020 at 14:02 Approved by: Wallace Hernandez M.D. on 06/29/2020 at 14:03
[2020-06-29 14:28] VITALS: BP 194/80; PULSE 89; RESP 18; O2SAT 100
--- NOTE | 2020-06-29 14:53 | ED_ITS ---
HPI - Extremity Injury (Lower) <FARHEEN Maravilla - Last Filed: 06/29/20 15:00> General Chief Complaint: Extremity Injury, Lower Stated Complaint: Foot Pain Time Seen by Provider: 06/29/20 12:35 Source: patient Mode of arrival: EMS Limitations: no limitations History of Present Illness HPI Narrative: The patient is a 72-year-old male who tripped and fell in his bathroom 3 days ago or so. Did not lose consciousness, does not take any blood thinners. Presents for chief complaint of right foot pain swelling and bruising. He states that he slipped in the bathroom. He is usually in a wheelchair. He is a nonsmoker Who presents by EMS. He has not taken anything for his foot pain. He states he has an abrasion to his head and bruising on his chin, but he is only here for his foot and does not want anything scanned other than his foot. Related Data Home Medications Medication Instructions Recorded Confirmed clonidine HCl 0.2 mg tablet 0.2 mg PO DAILY tab 04/08/19 05/18/20 furosemide 40 mg PO DAILY 05/12/20 05/18/20 Previous Rx's Medication Instructions Recorded Disabled Parking #1 each 10/07/18 simvastatin 40 mg tablet 40 mg PO Q DAY #90 tab 10/13/19 amlodipine 10 mg tablet 10 mg PO QDAY #90 tab 12/16/19 hydrocodone 10 mg-acetaminophen 1 tab PO Q4HP PRN #360 tab 02/17/20 325 mg tablet metoprolol tartrate 25 mg tablet 25 mg PO DAILY #90 tab 05/18/20 allopurinol 100 mg tablet 100 mg PO DAILY #90 tab 06/01/20 trazodone 50 mg tablet 50 mg PO BEDTIME PRN #90 tab 06/23/20 Allergies Allergy/AdvReac Type Severity Reaction Status Date / Time No Known Drug Allergies Allergy Verified 06/29/20 12:39 Review of Systems <FARHEEN Maravilla - Last Filed: 06/29/20 15:00> Review of Systems Narrative: GENERAL: Denies chills, fatigue, malaise, fever, sweats. HEENT: Denies sinus pain, ear pain, sore throat, difficulty swallowing, dizziness. RESPIRATORY: Denies dyspnea, cough, wheezing, hemoptysis, sputum. CARDIOVASCULAR: Denies chest pain, palpitations, orthopnea, edema, GASTROINTESTINAL: Denies nausea, vomiting, abdominal pain, diarrhea, constipation, melena. : Denies dysuria, frequency, incontinence, hematuria, urinary retention. MUSCULOSKELETAL: See HPI SKIN: See HPI NEUROLOGIC: Denies weakness, headache, numbness, change in speech, confusion, seizures, incoordination. PSYCHIATRIC: No concerning psychosocial issues. 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) Mixed hyperlipidemia (03/23/15) Osteoporosis (~04/2019) Spinal stenosis Spinal stenosis of lumbar region (01/18/11) Type 2 diabetes mellitus without complication (12/03/10) Family History (Updated 07/08/13 @ 00:00 by Edis Hassan MD) Father Family history of diabetes mellitus Family history of coronary artery disease Sister Family history of breast cancer Social History Smoking Status: Never smoker Smoking Status: Never smoker alcohol intake frequency: holidays/special occasions only Substance Use Type: does not use Exam <FARHEEN Maravilla - Last Filed: 06/29/20 15:00> Narrative Exam Narrative: GENERAL: This is a well-nourished, well-developed patient, in no acute distress HEAD: Small abrasion noted on forehead flu no extending erythema No temporal or scalp tenderness. Ecchymosis noted to chin EYES: Pupils equal round and reactive. Extraocular motions intact. No scleral icterus. No injection or drainage. ENT: Nose without bleeding, purulent drainage or septal hematoma. Throat without erythema, tonsillar hypertrophy or exudate. Uvula midline. Airway patent. NECK: Trachea midline. No JVD or lymphadenopathy. Supple, nontender, no meningeal signs. CARDIOVASCULAR: Regular rate and rhythm RESPIRATORY: Clear to auscultation. Breath sounds equal bilaterally. No wheezes, rales, or rhonchi. No cough. No increased respiratory effort. No accessory muscle use. GASTROINTESTINAL: Abdomen soft, non-tender, nondistended. No hepato- splenomegaly, or palpable masses. No guarding. EXTREMITIES: Generalized pain to palpation noted right foot and ankle. Ecchymosis noted over dorsum of right foot at base of 1st great toe. No lacerations or abrasions noted. Positive pedal pulses. Flexing and extending right foot, pain to palpation lateral malleolus right ankle. Flexing and extending right ankle. BACK: Nontender without deformity or crepitance. No flank tenderness. No pain to CT or L-spine palpation. NEURO: AOx3. SKIN: See extremity Initial Vital Signs Initial Vital Signs: Vital Signs Temperature 98.4 F 06/29/20 12:34 Pulse Rate 95 H 06/29/20 12:34 Respiratory Rate 14 06/29/20 12:34 Blood Pressure 177/83 H 06/29/20 12:34 Pulse Oximetry 100 06/29/20 12:34 <Sindhu Botello DO - Last Filed: 06/30/20 07:19> Initial Vital Signs Initial Vital Signs: Vital Signs Temperature 98.4 F 06/29/20 12:34 Pulse Rate 95 H 06/29/20 12:34 Respiratory Rate 14 06/29/20 12:34 Blood Pressure 177/83 H 06/29/20 12:34 Pulse Oximetry 100 06/29/20 12:34 Scores <FARHEEN Maravilla - Last Filed: 06/29/20 15:00> GCS Nazario coma scale eye opening: Spontaneous Nazario coma scale verbal response: Orientated Nazario coma scale motor response: Obey commands Nazario coma scale total score: 15 Course <FARHEEN Maravilla - Last Filed: 06/29/20 15:00> Orders Ordered: ED Orders 06/29/20 12:50 XR foot RT min 3V Stat 06/29/20 12:57 XR ankle RT min 3V Stat Vital Signs Vital signs: Vital Signs - 8 hr 06/29/20 12:34 06/29/20 14:28 Temperature 98.4 F Pulse Rate 95 H 89 Respiratory Rate 14 18 Blood Pressure 177/83 H 194/80 H Pulse Oximetry 100 100 <Sindhu Botello DO - Last Filed: 06/30/20 07:19> Orders Ordered: ED Orders 06/29/20 12:50 XR foot RT min 3V Stat 06/29/20 12:57 XR ankle RT min 3V Stat Vital Signs Vital signs: Vital Signs - 8 hr 06/29/20 12:34 06/29/20 14:28 Temperature 98.4 F Pulse Rate 95 H 89 Respiratory Rate 14 18 Blood Pressure 177/83 H 194/80 H Pulse Oximetry 100 100 MDM - Extremity Injury (Lower) <FARHEEN Maravilla - Last Filed: 06/29/20 15:00> Imaging Data Extremity x-ray #1: Radiologist's Impression: [address] [place] [id number] ReportSigned Patient: Devante Carmona R#: [id number]: [id number]:[id number]/Sex: 80 / MDate of Service: 06/29/20Loc: EDAccession Number: [id number] Procedure: XR ankle RT min 3V Ordering Provider: Zee Silva PROCEDURE: XR ANKLE RT MIN 3V INDICATIONS: pain sp fall TECHNIQUE: 3 views of the ankle were acquired. COMPARISON: None. FINDINGS: Bones: No fractures or dislocations. Ankle mortise is normally aligned. No suspicious bony lesions. Soft tissues: No tibiotalar joint effusion. Achilles tendon appears normal. Small vessel calcifications are prominent, indicating likelihood of longstanding diabetes. IMPRESSION: No trauma found. Extensive small vessel calcifications consistent longstanding diabetes. No area osteomyelitis suspected at the visualized hindfoot and midfoot. Dictated by: Wallace Hernandez M.D. on 06/29/2020 at 14:02 Approved by: Wallace Hernandez M.D. on 06/29/2020 at 14:03 Extremity x-ray #2: Radiologist's Impression: [address] [place] [id number] ReportSigned Patient: Devante Carmona R#: [id number]: [id number]:[id number]/Sex: 80 / MDate of Service: 06/29/20Loc: EDAccession Number: [id number] Procedure: XR foot RT min 3V Ordering Provider: Zee Silva PROCEDURE: XR FOOT RT MIN 3V INDICATIONS: foot injury TECHNIQUE: 3 views of the foot were acquired. COMPARISON: None. FINDINGS: Bones: No fractures or dislocations. No suspicious bony lesions. Diffuse osteopenia is present. A prominent midfoot as well as talocalcaneal degenerative narrowing is present. Soft tissues: No tibiotalar joint effusion. Achilles tendon appears normal. Prominent vascular calcifications. IMPRESSION: 1. Osteopenia and degenerative change. 2. No visualized acute fracture or dislocation. However, if clinical concern and/or pain persist, short interval imaging followup in 7-10 days is recommended, as occult injury cannot be definitively excluded. Dictated by: Rica Luke M.D. on 06/29/2020 at 12:32 Approved by: Rica Luke M.D. on 06/29/2020 at 12:34 [facility] Narrative Medical decision making narrative: The patient is a 72-year-old male presents with a chief right foot and ankle pain after a fall a few days ago. He did hit his head given does neurologically intact and declines imaging. X-rays of right ankle and foot showed no acute fracture appears neurovascularly intact throughout stay in the ER. He is placed in a postoperative shoe for comfort, but patient does not weightbear at home usually. He states he is in a wheelchair. I encouraged follow-up with primary care provider as well as rest ice compression elevation and [id number] medications as needed and able. Patient has no questions or concerns upon discharge states understanding of return precautions as well as follow-up care. Discharge Plan Departure Patient Disposition: Home Clinical Impression: Abrasion Contusion of foot Qualifiers: Encounter type: initial encounter Laterality: right Qualified Code(s): S90.31XA - Contusion of right foot, initial encounter Facial contusion Qualifiers: Encounter type: initial encounter Qualified Code(s): S00.83XA - Contusion of other part of head, initial encounter Instructions: DI for Contusion, How To Perform RICE (Rest, Ice, Compress, Elevate), DI for Abrasion, DI for Foot Pain Activity Restrictions/Additional Instructions: Thank you for trusting us with your care today As I discussed, your x-ray shows no acute fracture. This does not rule out a soft tissue injury such as a ligament or tendon injury. It is important that you follow up with primary care provider, especially if worsening or no improvement. There can be fractures that did not show up on initial x-ray. Please use [id number] medications as needed and able. Please use rest ice compression elevation. Please monitor for signs and symptoms of infection from your abrasion. Please come back to the emergency department for any acute concerns Prescriptions: No Action simvastatin [Zocor] 40 mg tablet 40 mg PO Q DAY Qty: 90 RF: 3 amlodipine 10 mg tablet 10 mg PO QDAY Qty: 90 RF: 3 allopurinol 100 mg tablet 100 mg PO DAILY Qty: 90 RF: 3 trazodone 50 mg tablet 50 mg PO BEDTIME PRN (Reason: insomnia) Qty: 90 RF: 3 clonidine HCl 0.2 mg tablet 0.2 mg PO DAILY RF: 0 (DME) Disabled Parking Qty: 1 RF: 0 hydrocodone-acetaminophen 10-325 mg tablet 1 tab PO Q4HP PRN (Reason: pain) Qty: 360 RF: 0 metoprolol tartrate 25 mg tablet 25 mg PO DAILY Qty: 90 RF: 2 furosemide 40 mg Tablet 40 mg PO DAILY RF: 0 Referrals: Edis Hassan MD [Primary Care Provider] - <Sindhu Botello DO - Last Filed: 06/30/20 07:19> [facility] I was immediately available in the department for consultation. Documentation has been reviewed. I agree with assessment and plan.
== END 2020-06-29 14:28 | disposition home or self-care (01) ==
PROVIDERS: Emergency Provider Nurse Practitioner Family; PCP Internal Medicine
DX: S90.31XA Contusion of right foot, initial encounter (principal); S00.83XA Contusion of other part of head, initial encounter; W01.0XXA Fall on same level from slipping, tripping and stumbling without subsequent striking against object, initial encounter
CPT/HCPCS: 73610; 73630; 99283; 99284

== ENCOUNTER → 2020-07-14 10:14 | Outpatient (CLI) | payer MEDICARE, OTHER, SELFPAY ==
[2020-07-14 11:09] LABS: BUN Creatinine Ratio 20.7 (6-22); Blood Urea Nitrogen 49 mg/dL (9-20); Calcium 8.9 mg/dL (8.4-10.2); Carbon Dioxide 26 mmol/L (22-32); Chloride 103 mmol/L (98-107); Estimated Glomerular Filt Rate 26.7 mL/min (>60); Glucose 297 mg/dL (80-110); HEMOLYSIS < 15 (0-50); Potassium 3.9 mmol/L (3.4-5.1); Sodium 134 mmol/L (137-145)
== END ==
PROVIDERS: PCP Internal Medicine; Referring Provider Student in an Organized Health Care Education/Training Program; Visit Provider Internal Medicine
DX: N18.4 Chronic kidney disease, stage 4 (severe) (principal)
CPT/HCPCS: 36415; 80048

== ENCOUNTER → 2020-09-20 11:41 | Outpatient (CLI) | payer MEDICARE, OTHER, SELFPAY ==
[2020-09-20 12:30] LABS: Hematocrit 34.1 % (41-53); Hemoglobin 11.4 g/dL (13.5-17.5)
[2020-09-20 12:50] LABS: BUN Creatinine Ratio 18.8 (6-22); Blood Urea Nitrogen 48 mg/dL (9-20); Calcium 9.3 mg/dL (8.4-10.2); Carbon Dioxide 20 mmol/L (22-32); Chloride 107 mmol/L (98-107); Estimated Glomerular Filt Rate 24.5 mL/min (>60); Glucose 160 mg/dL (80-110); HEMOLYSIS < 15 (0-50); Sodium 138 mmol/L (137-145)
[2020-09-20 16:56] LABS: Creatinine Urine Random 77.7 mg/dL
[2020-09-20 17:07] LABS: Protein (Total) Urine Random 596 mg/dL (0-12); Protein Creatinine Ratio Urine 7.67 GRAM/24H
[2020-09-21 17:10] LABS: Calcium 9.3 mg/dL (8.6-10.2); Parathyroid Hormone, Intact 381 pg/mL (15-65)
== END ==
PROVIDERS: PCP Internal Medicine; Referring Provider Internal Medicine; Visit Provider Internal Medicine
DX: E11.9 Type 2 diabetes mellitus without complications (principal); N05.9 Unspecified nephritic syndrome with unspecified morphologic changes; D64.9 Anemia, unspecified; N25.81 Secondary hyperparathyroidism of renal origin; R80.9 Proteinuria, unspecified; E78.2 Mixed hyperlipidemia; I10 Essential (primary) hypertension; N18.4 Chronic kidney disease, stage 4 (severe)
CPT/HCPCS: 36415; 80048; 82310; 82570; 83036; 83970; 84156; 85014; 85018

== ENCOUNTER → 2020-10-20 11:10 | Outpatient (CLI) | payer MEDICARE, OTHER, SELFPAY ==
[2020-10-20 11:59] LABS: BUN Creatinine Ratio 19.9 (6-22); Blood Urea Nitrogen 58 mg/dL (9-20); Calcium 9.1 mg/dL (8.4-10.2); Carbon Dioxide 23 mmol/L (22-32); Chloride 101 mmol/L (98-107); Glucose 307 mg/dL (80-110); HEMOLYSIS < 15 (0-50); Potassium 3.5 mmol/L (3.4-5.1); Sodium 136 mmol/L (137-145)
[2020-10-20 12:08] LABS: NT-proBNP (BNP-Adult 18+) 11300 pg/mL (<450)
== END ==
PROVIDERS: PCP Internal Medicine; Referring Provider Student in an Organized Health Care Education/Training Program; Visit Provider Student in an Organized Health Care Education/Training Program
DX: N05.9 Unspecified nephritic syndrome with unspecified morphologic changes (principal); I50.32 Chronic diastolic (congestive) heart failure
CPT/HCPCS: 36415; 80048; 83880

== ENCOUNTER → 2020-12-17 11:43 | Outpatient (CLI) | payer MEDICARE, OTHER, SELFPAY ==
[2020-12-17 13:34] LABS: Hematocrit 39.5 % (41-53); Hemoglobin 12.9 g/dL (13.5-17.5)
[2020-12-17 13:41] LABS: BUN Creatinine Ratio 17.3 (6-22); Blood Urea Nitrogen 58 mg/dL (9-20); Calcium 9.7 mg/dL (8.4-10.2); Carbon Dioxide 25 mmol/L (22-32); Chloride 105 mmol/L (98-107); Estimated Glomerular Filt Rate 17.8 mL/min (>60); Glucose 181 mg/dL (80-110); HEMOLYSIS < 15 (0-50); Potassium 3.8 mmol/L (3.4-5.1); Sodium 139 mmol/L (137-145)
[2020-12-18 10:13] LABS: Parathyroid Hormone Int 307 pg/mL (15-65)
== END ==
PROVIDERS: PCP Internal Medicine; Referring Provider Student in an Organized Health Care Education/Training Program; Visit Provider Student in an Organized Health Care Education/Training Program
DX: N05.9 Unspecified nephritic syndrome with unspecified morphologic changes (principal); D64.9 Anemia, unspecified; N25.81 Secondary hyperparathyroidism of renal origin
CPT/HCPCS: 36415; 80048; 83970; 85014; 85018

== ENCOUNTER → 2021-01-19 10:59 | Outpatient (CLI) | payer MEDICARE, OTHER, SELFPAY ==
[2021-01-19 11:48] LABS: Hematocrit 37.8 % (41-53); Hemoglobin 12.5 g/dL (13.5-17.5)
[2021-01-19 12:02] LABS: BUN Creatinine Ratio 18.6 (6-22); Blood Urea Nitrogen 52 mg/dL (9-20); Calcium 9.1 mg/dL (8.4-10.2); Carbon Dioxide 26 mmol/L (22-32); Chloride 103 mmol/L (98-107); Glucose 287 mg/dL (80-110); HEMOLYSIS < 15 (0-50); Potassium 3.5 mmol/L (3.4-5.1); Sodium 138 mmol/L (137-145)
[2021-01-20 08:36] LABS: Parathyroid Hormone Int 453 pg/mL (15-65)
== END ==
PROVIDERS: PCP Internal Medicine; Referring Provider Student in an Organized Health Care Education/Training Program; Visit Provider Student in an Organized Health Care Education/Training Program
DX: N05.9 Unspecified nephritic syndrome with unspecified morphologic changes (principal); D64.9 Anemia, unspecified; N25.81 Secondary hyperparathyroidism of renal origin
CPT/HCPCS: 36415; 80048; 83970; 85014; 85018

== ENCOUNTER → 2021-05-09 13:44 | Outpatient (CLI) | payer MEDICARE, OTHER, SELFPAY ==
[2021-05-09 14:32] LABS: Add Manual Diff / Slide Review NO; Basophils Absolute Auto 0 /uL (0-100); Basophils Percent Auto 0.5 % (0-2); Eosinophils Absolute Auto 0 /uL (0-450); Eosinophils Percent Auto 0.6 % (2-4); Hematocrit 34.3 % (41-53); Hemoglobin 11.7 g/dL (13.5-17.5); Lymphocytes Absolute Auto 1000 /uL (1100-4500); Lymphocytes Percent Auto 13.2 % (25-40); Mean Corpuscular HGB Conc 34.1 % (30-36); Mean Corpuscular Hemoglobin 31.9 PG (26-34); Mean Corpuscular Volume 93.6 fL (80-100); Monocytes Absolute Auto 500 /uL (0-900); Monocytes Percent Auto 6.8 % (3-14); Neutrophils Absolute Auto 6100 /uL (1500-7000); Neutrophils Percent Auto 78.9 % (50-75); Platelet Count 129 X10^3/uL (150-400); Red Blood Cell Count 3.66 X10^6/uL (4.5-5.9); Red Cell Distribution Width 14.9 % (11.6-14.8); White Blood Cell Count 7.7 X10^3/uL (4.5-11.0)
[2021-05-09 15:22] LABS: INR 1.1 (0.9-1.3); Prothrombin Time 12.7 SECONDS (10.1-12.7)
[2021-05-09 15:46] LABS: Alanine Aminotransferase 21 IU/L (<50); Albumin 3.9 g/dL (3.5-5.0); Albumin Globulin Ratio 1.2 (1.0-2.8); Alkaline Phosphatase 160 U/L (38-126); Aspartate Aminotransferase 35 IU/L (17-59); BUN Creatinine Ratio 15.5 (6-22); Bilirubin Total 0.7 mg/dL (0.2-1.3); Blood Urea Nitrogen 61 mg/dL (9-20); Calcium 10.8 mg/dL (8.4-10.2); Carbon Dioxide 25 mmol/L (22-32); Chloride 102 mmol/L (98-107); Estimated Glomerular Filt Rate 14.8 mL/min (>60); Globulin 3.3 g/dL (1.7-4.1); Glucose 113 mg/dL (80-110); HEMOLYSIS < 15 (0-50); Potassium 4.4 mmol/L (3.4-5.1); Sodium 138 mmol/L (137-145); Total Protein 7.2 g/dL (6.3-8.2)
[2021-05-11 12:04] LABS: Albumin 3.5 g/dL (2.9-4.4); Alpha-1-Globulin 0.4 g/dL (0.0-0.4); Alpha-2-Globulin 0.9 g/dL (0.4-1.0); Gamma Globulin 1.4 g/dL (0.4-1.8); Globulin Total 3.5 g/dL (2.2-3.9)
== END ==
PROVIDERS: Internal Medicine; PCP Internal Medicine; Referring Provider Student in an Organized Health Care Education/Training Program; Visit Provider Student in an Organized Health Care Education/Training Program
DX: E11.9 Type 2 diabetes mellitus without complications (principal); N05.9 Unspecified nephritic syndrome with unspecified morphologic changes; D64.9 Anemia, unspecified; N25.81 Secondary hyperparathyroidism of renal origin; I10 Essential (primary) hypertension; N18.4 Chronic kidney disease, stage 4 (severe); D47.2 Monoclonal gammopathy
CPT/HCPCS: 36415; 80053; 83036; 84155; 84165; 85025; 85610

== ENCOUNTER → 2021-05-20 14:29 | Outpatient (CLI) | payer MEDICARE, OTHER, SELFPAY ==
--- NOTE | 2021-05-20 14:32 | DI.US.S_ITS ---
PROCEDURE: US RENAL COMPLETE INDICATIONS: KIDNEY STONES TECHNIQUE: Real-time scanning was performed of the kidneys and bladder, with image documentation. COMPARISON: [facility], , RENAL COMPLETE, 09/12/2019, 13:02. FINDINGS: Kidneys: Kidneys are normal in size. Right kidney measures a 8.8 cm long; left kidney measures 8.6 cm long. Right renal cortical thickness is 1.1 cm; left renal cortical thickness is 1.3 cm. Renal cortical echotexture is normal. No hydronephrosis. Multiple bilateral nonobstructing renal calculi are seen, the largest measures 1.0 cm on the left and 0.6 cm on the right. A 1.5 cm cyst is seen in the inferior pole of the right kidney. No suspicious solid mass lesions. Bladder: The bladder was nondistended on prevoid images, which compromises evaluation. Postvoid images could not be obtained. Miscellaneous: No free pelvic fluid. IMPRESSION: Multiple nonobstructing renal calculi are again seen bilaterally. No hydronephrosis. Dictated by: Stefan Quintero M.D. on 05/20/2021 at 16:01 Approved by: Stefan Quintero M.D. on 05/20/2021 at 16:04
[2021-05-20 16:36] LABS: BUN Creatinine Ratio 16.4 (6-22); Blood Urea Nitrogen 60 mg/dL (9-20); Calcium 8.9 mg/dL (8.4-10.2); Carbon Dioxide 25 mmol/L (22-32); Chloride 100 mmol/L (98-107); Estimated Glomerular Filt Rate 16.1 mL/min (>60); Glucose 180 mg/dL (80-110); HEMOLYSIS < 15 (0-50); Potassium 4.1 mmol/L (3.4-5.1); Sodium 132 mmol/L (137-145)
[2021-05-20 16:55] LABS: Appearance Urine UA CLEAR; Bilirubin Urine UA NEGATIVE (NEGATIVE); Color Urine UA YELLOW; Glucose Urine UA TRACE g/dL (Negative); Ketones Urine UA NEGATIVE (NEGATIVE); Leukocyte Esterase Urine UA NEGATIVE (NEGATIVE); Nitrite Urine UA NEGATIVE (Negative); Occult Blood Urine UA 1+ (Negative); Protein Urine UA 2+ (Negative); Urobilinogen Urine UA 0.2 E.U./dL (0.2)
[2021-05-20 17:21] LABS: Bacteria Urine None Seen; Granular Casts Urine 1-5/LPF; Hyaline Casts Urine 0-1/LPF; RBC Urine None Seen (0-5/HPF); Squamous Epithelial Cell Urine None Seen (0-5/HPF); WBC Urine 0-1/HPF (0-5/HPF)
[2021-05-20 19:17] LABS: Creatinine Urine Random 62.2 mg/dL
[2021-05-20 19:26] LABS: Protein (Total) Urine Random 342 mg/dL (0-12); Protein Creatinine Ratio Urine 5.49 GRAM/24H
[2021-05-20 21:41] LABS: Culture Indicated Urine Cult Not Indicated
== END ==
PROVIDERS: PCP Internal Medicine; Referring Provider Student in an Organized Health Care Education/Training Program; Visit Provider Student in an Organized Health Care Education/Training Program
DX: N18.4 Chronic kidney disease, stage 4 (severe) (principal); Z87.442 Personal history of urinary calculi; N05.9 Unspecified nephritic syndrome with unspecified morphologic changes; N30.00 Acute cystitis without hematuria; R80.9 Proteinuria, unspecified; N20.0 Calculus of kidney
CPT/HCPCS: 36415; 76770; 80048; 81001; 82570; 84156

== ENCOUNTER 2021-05-25 23:22 | Emergency (ER) | payer MEDICARE, OTHER, SELFPAY ==
[2021-05-25 23:26] VITALS: BP 185/90; PULSE 93; RESP 19; TEMP 36.6; O2SAT 97
--- NOTE | 2021-05-25 23:30 | DI.CT.S_ITS ---
PROCEDURE: CT HEAD/BRAIN WO CON INDICATIONS: fall TECHNIQUE: Noncontrast 4.5 mm thick angled axial sections acquired from the foramen magnum to the vertex, with coronal and sagittal reformats. For radiation dose reduction, the following was used: automated exposure control, adjustment of mA and/or kV according to patient size. COMPARISON: [facility], CT, HEAD WITHOUT CONTRAST, 10/30/2016, 14:09. FINDINGS: Image quality: Excellent. CSF spaces: Basal cisterns are patent. No extra-axial fluid collections. The ventricles are symmetric in size and shape. Brain: No intracranial bleeds or masses. Small lacunar infarcts are seen in left basal ganglia. There is cerebral volume loss for age, with resultant ventricular and sulcal prominence. There are periventricular and deep white matter chronic small vessel ischemic changes. There is intracranial internal carotid artery atherosclerosis. Skull and face: Calvarium and visualized facial bones appear intact, without suspicious lesions. Sinuses: Visualized sinuses and mastoids are clear. IMPRESSION: 1. No CT evidence of acute intracranial abnormalities. 2. No gross acute skull fracture. 3. Age-related atrophy and extensive white matter chronic small vessel ischemic changes. Dictated by: Frederick Rosas M.D. on 05/26/2021 at 0:38 Approved by: Frederick Rosas M.D. on 05/26/2021 at 0:39
--- NOTE | 2021-05-25 23:30 | ED_ITS ---
HPI - Altered Mental Status General Chief Complaint: Trauma Stated Complaint: ALOC Time Seen by Provider: 05/25/21 23:29 History of Present Illness HPI narrative: Male history of chronic kidney disease, hypertension, hyperlipidemia, diabetes,MGUS, presenting today with confusion weakness and falls. He is actually seen by his primary care provider on 05/16/2021 for routine checkup. He actually saw nephrology today also for follow-up at which point they decided to increase his diuretics as he was retaining walk. He went home fell in hit his head EMS was called. At that time he was not transported to the hospital. There was no significant injury he is not on blood thinners he did not lose consciousness. However this evening he woke up and was quite confused according to the . Asked multiple times if he was in his bed which he was. This is abnormal behavior for him. He is not able to give good history but currently denies any chest pain or shortness of breath. He says he is retaining water he did go to the doctor today he is unsure water. He is having no pain but generally feels weak all over Related Data Home Medications Medication Instructions Recorded Confirmed clonidine HCl 0.3 mg tablet 0.3 mg PO DAILY tab 07/02/20 05/16/21 amlodipine 5 mg tablet 5 mg PO DAILY tab 12/21/20 05/16/21 furosemide 40 mg tablet 40 mg PO DAILY 12/30/20 05/16/21 calcitriol 0.5 mcg capsule 0.5 mcg PO DAILY cap 02/22/21 05/16/21 multivitamin,xa-lwst-flrzplbr 1 tab PO DAILY 05/11/21 05/16/21 Previous Rx's Medication Instructions Recorded Disabled Parking #1 each 10/07/18 simvastatin 40 mg tablet (Zocor) 40 mg PO Q DAY #90 tab 10/12/20 hydrocodone 10 mg-acetaminophen 1 tab PO Q4HP PRN #120 tab 03/25/21 325 mg tablet trazodone 50 mg tablet 50 mg PO BEDTIME PRN #90 tab 05/16/21 trazodone 50 mg tablet 50 mg PO BEDTIME PRN #90 tab 05/16/21 Allergies Allergy/AdvReac Type Severity Reaction Status Date / Time No Known Drug Allergies Allergy Verified 05/16/21 10:44 Review of Systems Review of Systems ROS Unobtainable: All systems reviewed & are unremarkable except as noted in HPI and below Constitutional Constitutional: Reports body ache(s), Reports frequent falls, Denies headache(s) and Reports weakness Eyes Eyes: Reports eye discharge ENT Ears, Nose, Mouth, and Throat: Denies dizziness, Denies headache(s) and Denies sore throat Cardiovascular Cardiovascular: Denies chest pain and Denies dyspnea Respiratory Respiratory: Denies chest congestion, Denies cough and Denies dyspnea Gastrointestinal Gastrointestinal: Denies nausea and Denies vomiting Genitourinary Genitourinary: Reports urinary incontinence Musculoskeletal Musculoskeletal: Reports myalgias Integumentary/Breasts Skin/Breast: Denies rash Neurologic Neurologic: Denies dizziness, Reports frequent falls, Denies headache(s) and Reports weakness Patient History Medical History (Updated 05/26/21 @ 06:11 by Sindhu Botello DO) Chronic renal failure, stage 4 (severe) Diabetes mellitus Essential hypertension (12/03/10) Gout Hyperlipidemia Hypertension 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) Mixed hyperlipidemia (03/23/15) Osteoporosis (~04/2019) Spinal stenosis Spinal stenosis of lumbar region (01/18/11) Type 2 diabetes mellitus without complication (12/03/10) Family History (Updated 07/08/13 @ 00:00 by Edis Hassan MD) Father Family history of diabetes mellitus Family history of coronary artery disease Sister Family history of breast cancer Social History Smoking Status: Never smoker Smoking Status: Never smoker alcohol intake frequency: holidays/special occasions only Substance Use Type: does not use Exam Initial Vital Signs Initial Vital Signs: Vital Signs Temperature 97.9 F 05/25/21 23:26 Pulse Rate 93 H 05/25/21 23:26 Respiratory Rate 19 05/25/21 23:26 Blood Pressure 185/90 H 05/25/21 23:26 Pulse Oximetry 97 05/25/21 23:26 GENERAL: Well-appearing, well-nourished and in no acute] distress. HEENT: Head atraumatic,EOMI, pupils reactive, face symmetric, moist mucous membranes NECK: Supple no JVD CARDIOVASCULAR: Regular rate no murmur RESPIRATORY: Breath sounds equal bilaterally, no wheezes rales or rhonchi. ABDOMEN: Soft, nontender. Normoactive bowel sounds all 4 quadrants. No guarding or rebound. RECTAL: Hemoccult negative EXTREMITIES: Normal range of motion, no clubbing or edema. Neurovascularly intact NEUROLOGICAL: Moves all extremities rn clinician strength equal SKIN: Warm, dry, no laceration, no petechiae, no rashes or lesions. Course Orders Ordered: ED Orders 05/25/21 23:00 Complete Blood Count AUTO DIFF Stat Comprehensive Metabolic Panel Stat Lactate (Lactic Acid) Stat Lipase Stat NT-proBNP (BNP-Adult 18+) Stat Procalcitonin Stat Troponin & CK Cardiac Panel Stat 05/25/21 23:30 CT head/brain wo con Stat XR chest 1V Stat UA dip and micro [Urinalysis and Microscopic] Stat EKG-12 Lead Stat 05/25/21 23:35 COVID19 -Nasal swab/Pre-Proc Stat 05/25/21 23:55 Blood Culture Stat 05/26/21 EKG-12 Lead Routine 05/26/21 00:05 Urinalysis and Microscopic Stat 05/26/21 00:21 PT [Prothrombin Time INR] Stat PTT [Partial Thromboplastin Time] Stat 05/26/21 02:10 Trop I [Troponin I] Stat 05/26/21 07:30 PTT [Partial Thromboplastin Time] Stat Heparin Sodium/Dextrose (Heparin Drip) 25,000 unit in 500 mls @ 18.507 mls/hr IV CONT JENNYFER; Protocol Last Admin: 05/26/21 01:38 Dose: 12 units/kg/hr, 18.507 mls/hr Documented by: JEWEL Nitroglycerin (Nitroglycerin) 50 mg in 250 mls @ 1.5 mls/hr IV TITRATE JENNYFER; Protocol Last Titration: 05/26/21 05:44 Dose: 20 mcg/min, 6 mls/hr Documented by: Titration: 05/26/21 05:28 Dose: 10 mcg/min, 3 mls/hr Documented by: Admin: 05/26/21 04:53 Dose: 5 mcg/min, 1.5 mls/hr Documented by: JEWEL Discontinued Medications Furosemide (Furosemide 100 Mg/10 Ml Vial) 60 mg IV NOW ONE Stop: 05/26/21 01:12 Last Admin: 05/26/21 01:35 Dose: 60 mg Documented by: JEWEL Heparin Sodium (Porcine) (Heparin 5,000 Unit/Ml Vial) 4,000 unit IV NOW ONE Stop: 05/26/21 01:12 Last Admin: 05/26/21 01:36 Dose: 4,000 unit Documented by: JEWEL Labetalol HCl (Labetalol 20 Mg/4 Ml Syringe) 20 mg IV NOW ONE Stop: 05/26/21 03:37 Last Admin: 05/26/21 03:44 Dose: 20 mg Documented by: LYRIC Nitroglycerin (Nitroglycerin 0.4 Mg Sl Tab) 0.4 mg SL NOW ONE Stop: 05/26/21 01:14 Last Admin: 05/26/21 01:37 Dose: 0.4 mg Documented by: JEWEL Vital Signs Vital signs: Vital Signs - 8 hr 05/25/21 23:26 05/26/21 00:43 05/26/21 00:50 Temperature 97.9 F Pulse Rate 93 H 89 92 H Respiratory Rate 19 18 20 Blood Pressure 185/90 H 194/91 H 194/91 H Pulse Oximetry 97 90 L 93 05/26/21 01:00 05/26/21 01:30 05/26/21 01:37 Temperature Pulse Rate 89 98 H Respiratory Rate 21 27 H Blood Pressure 194/91 H Pulse Oximetry 93 93 05/26/21 01:49 05/26/21 02:00 05/26/21 02:10 Temperature Pulse Rate 94 H 90 93 H Respiratory Rate 21 20 22 Blood Pressure 152/75 H 172/86 H 166/84 H Pulse Oximetry 92 92 93 05/26/21 02:30 05/26/21 03:00 05/26/21 03:30 Temperature Pulse Rate 95 H 91 H 88 Respiratory Rate 21 20 22 Blood Pressure 183/85 H 185/86 H 192/93 H Pulse Oximetry 93 92 94 05/26/21 03:55 05/26/21 04:00 05/26/21 04:30 Temperature Pulse Rate 62 65 64 Respiratory Rate 15 16 17 Blood Pressure 167/86 H 162/84 H 192/77 H Pulse Oximetry 97 97 94 05/26/21 04:34 05/26/21 04:53 05/26/21 05:00 Temperature Pulse Rate 59 L 65 Respiratory Rate 19 18 Blood Pressure 192/77 H 192/77 H 192/77 H Pulse Oximetry 94 94 05/26/21 05:10 05/26/21 05:21 Temperature Pulse Rate 64 67 Respiratory Rate 18 24 Blood Pressure 143/65 H 184/77 H Pulse Oximetry 94 94 MDM - Altered Mental Status Lab Data Result diagrams: 05/25/21 23:00 05/25/21 23:00 Labs: Lab Results 05/25/21 05/25/21 05/25/21 Range/Units 23:00 23:00 23:00 WBC 7.0 (4.5-11.0) X10^3/uL RBC 2.90 L (4.5-5.9) X10^6/uL Hgb 9.3 L (13.5-17.5) g/dL Hct 27.2 L (41-53) % MCV 94.0 (80-100) fL MCH 32.0 (26-34) PG MCHC 34.0 (30-36) % RDW 15.7 H (11.6-14.8) % Plt Count 128 L (150-400) X10^3/uL Neut % (Auto) 75.5 H (50-75) % Lymph % (Auto) 12.0 L (25-40) % Jones % (Auto) 9.5 (3-14) % Eos % (Auto) 2.4 (2-4) % Baso % (Auto) 0.6 (0-2) % Neut # (Auto) 5300 (8414-6441) /uL Lymph # (Auto) 800 L (8053-8379) /uL Jones # (Auto) 700 (0-900) /uL Eos # (Auto) 200 (0-450) /uL Baso # (Auto) 0 (0-100) /uL PT (10.1-12.7) SECONDS INR (0.9-1.3) APTT (26.4-36.2) SECONDS Sodium 133 L (137-145) mmol/L Potassium 4.4 (3.4-5.1) mmol/L Chloride 102 (98-107) mmol/L Carbon Dioxide 24 (22-32) mmol/L BUN 60 H (9-20) mg/dL Creatinine 3.52 H (0.66-1.25) mg/dL Estimated GFR 16.9 L (>60) mL/min BUN/Creatinine Ratio 17.0 (6-22) Glucose 114 H (80-110) mg/dL Lactate 1.1 (0.7-2.1) mmol/L Calcium 9.6 (8.4-10.2) mg/dL Total Bilirubin 0.6 (0.2-1.3) mg/dL AST 28 (17-59) IU/L ALT 17 (<50) IU/L Alkaline Phosphatase 132 H (38-126) U/L Total Creatine Kinase 96 (55-170) U/L CK-MB (CK-2) TNP CK-MB (CK-2) Rel Index TNP Troponin I 0.177 H* (0.01-0.034) ng/mL NT-Pro-B Natriuret Pep 29440 H (<450) pg/mL Total Protein 6.7 (6.3-8.2) g/dL Albumin 3.6 (3.5-5.0) g/dL Globulin 3.1 (1.7-4.1) g/dL Albumin/Globulin Ratio 1.2 (1.0-2.8) Lipase 29 (23-300) U/L Procalcitonin (<0.5) ng/mL Urine Color Urine Appearance Urine pH (4.5-8.0) Ur Specific Fitzpatrick (1.000-1.035) Urine Protein (Negative) Urine Glucose (UA) (Negative) g/dL Urine Ketones (NEGATIVE) Urine Occult Blood (Negative) Urine Nitrate (Negative) Urine Bilirubin (NEGATIVE) Urine Urobilinogen (0.2) E.U./dL Ur Leukocyte Esterase (NEGATIVE) Urine RBC (0-5/HPF) Urine WBC (0-5/HPF) Urine Bacteria (None) Ur Culture Indicated? SARS-CoV-2 (PCR) (Negative) 05/25/21 05/25/21 05/25/21 Range/Units 23:00 23:00 23:35 WBC (4.5-11.0) X10^3/uL RBC (4.5-5.9) X10^6/uL Hgb (13.5-17.5) g/dL Hct (41-53) % MCV (80-100) fL MCH (26-34) PG MCHC (30-36) % RDW (11.6-14.8) % Plt Count (150-400) X10^3/uL Neut % (Auto) (50-75) % Lymph % (Auto) (25-40) % Jones % (Auto) (3-14) % Eos % (Auto) (2-4) % Baso % (Auto) (0-2) % Neut # (Auto) (2069-9468) /uL Lymph # (Auto) (4834-1605) /uL Jones # (Auto) (0-900) /uL Eos # (Auto) (0-450) /uL Baso # (Auto) (0-100) /uL PT 12.4 (10.1-12.7) SECONDS INR 1.1 (0.9-1.3) APTT 32 (26.4-36.2) SECONDS Sodium (137-145) mmol/L Potassium (3.4-5.1) mmol/L Chloride (98-107) mmol/L Carbon Dioxide (22-32) mmol/L BUN (9-20) mg/dL Creatinine (0.66-1.25) mg/dL Estimated GFR (>60) mL/min BUN/Creatinine Ratio (6-22) Glucose (80-110) mg/dL Lactate (0.7-2.1) mmol/L Calcium (8.4-10.2) mg/dL Total Bilirubin (0.2-1.3) mg/dL AST (17-59) IU/L ALT (<50) IU/L Alkaline Phosphatase (38-126) U/L Total Creatine Kinase (55-170) U/L CK-MB (CK-2) CK-MB (CK-2) Rel Index Troponin I (0.01-0.034) ng/mL NT-Pro-B Natriuret Pep (<450) pg/mL Total Protein (6.3-8.2) g/dL Albumin (3.5-5.0) g/dL Globulin (1.7-4.1) g/dL Albumin/Globulin Ratio (1.0-2.8) Lipase (23-300) U/L Procalcitonin 0.26 (<0.5) ng/mL Urine Color Urine Appearance Urine pH (4.5-8.0) Ur Specific Fitzpatrick (1.000-1.035) Urine Protein (Negative) Urine Glucose (UA) (Negative) g/dL Urine Ketones (NEGATIVE) Urine Occult Blood (Negative) Urine Nitrate (Negative) Urine Bilirubin (NEGATIVE) Urine Urobilinogen (0.2) E.U./dL Ur Leukocyte Esterase (NEGATIVE) Urine RBC (0-5/HPF) Urine WBC (0-5/HPF) Urine Bacteria (None) Ur Culture Indicated? SARS-CoV-2 (PCR) Negative (Negative) 05/26/21 05/26/21 Range/Units 00:05 02:10 WBC (4.5-11.0) X10^3/uL RBC (4.5-5.9) X10^6/uL Hgb (13.5-17.5) g/dL Hct (41-53) % MCV (80-100) fL MCH (26-34) PG MCHC (30-36) % RDW (11.6-14.8) % Plt Count (150-400) X10^3/uL Neut % (Auto) (50-75) % Lymph % (Auto) (25-40) % Jones % (Auto) (3-14) % Eos % (Auto) (2-4) % Baso % (Auto) (0-2) % Neut # (Auto) (7450-4449) /uL Lymph # (Auto) (5402-7879) /uL Jones # (Auto) (0-900) /uL Eos # (Auto) (0-450) /uL Baso # (Auto) (0-100) /uL PT (10.1-12.7) SECONDS INR (0.9-1.3) APTT (26.4-36.2) SECONDS Sodium (137-145) mmol/L Potassium (3.4-5.1) mmol/L Chloride (98-107) mmol/L Carbon Dioxide (22-32) mmol/L BUN (9-20) mg/dL Creatinine (0.66-1.25) mg/dL Estimated GFR (>60) mL/min BUN/Creatinine Ratio (6-22) Glucose (80-110) mg/dL Lactate (0.7-2.1) mmol/L Calcium (8.4-10.2) mg/dL Total Bilirubin (0.2-1.3) mg/dL AST (17-59) IU/L ALT (<50) IU/L Alkaline Phosphatase (38-126) U/L Total Creatine Kinase (55-170) U/L CK-MB (CK-2) CK-MB (CK-2) Rel Index Troponin I 0.163 H* (0.01-0.034) ng/mL NT-Pro-B Natriuret Pep (<450) pg/mL Total Protein (6.3-8.2) g/dL Albumin (3.5-5.0) g/dL Globulin (1.7-4.1) g/dL Albumin/Globulin Ratio (1.0-2.8) Lipase (23-300) U/L Procalcitonin (<0.5) ng/mL Urine Color Yellow Urine Appearance Clear Urine pH 5.0 (4.5-8.0) Ur Specific Fitzpatrick 1.020 (1.000-1.035) Urine Protein 2+ H (Negative) Urine Glucose (UA) Negative (Negative) g/dL Urine Ketones Negative (NEGATIVE) Urine Occult Blood 2+ H (Negative) Urine Nitrate Negative (Negative) Urine Bilirubin Negative (NEGATIVE) Urine Urobilinogen 0.2 (0.2) E.U./dL Ur Leukocyte Esterase Negative (NEGATIVE) Urine RBC None seen (0-5/HPF) Urine WBC None seen (0-5/HPF) Urine Bacteria None seen (None) Ur Culture Indicated? Cult not indicated SARS-CoV-2 (PCR) (Negative) Imaging Data Chest x-ray: Radiologist's Impression: PROCEDURE:? XR CHEST 1V ? INDICATIONS:? weakness ? TECHNIQUE:? One view of the chest was acquired.? ? COMPARISON:? [facility], , CHEST 2 VIEW, 12/24/2012, 10:47. ? FINDINGS:? ? Surgical changes and devices:? There is prior right shoulder arthroplasty. ? Lungs and pleura:? Increased interstitial reticular lung markings are noted bilaterally suggestive of pulmonary edema versus extensive pulmonary infiltrates.? Mild elevation of left hemidiaphragm is noted with left basilar atelectasis.? No pleural effusions or pneumothorax.? ? Mediastinum:? Tortuous thoracic aorta is seen.? Heart size is enlarged.? ? Bones and chest wall:? No suspicious bony lesions.? Overlying soft tissues appear unremarkable.? ? IMPRESSION:? Cardiomegaly and congestion with suggestion of pulmonary edema.? Underlying bilateral pulmonary infiltrates cannot be excluded.? No gross pneumothorax. ? ? Dictated by: Frederick Rosas M.D. on 05/26/2021 at 0:18 ? CT scan - head: Radiologist's Impression: PROCEDURE:? CT HEAD/BRAIN WO CON ? INDICATIONS:? fall ? TECHNIQUE:? Noncontrast 4.5 mm thick angled axial sections acquired from the foramen magnum to the vertex, with coronal and sagittal reformats.? For radiation dose reduction, the following was used:? automated exposure control, adjustment of mA and/or kV according to patient size.? ? COMPARISON:? [facility], CT, HEAD WITHOUT CONTRAST, 10/30/2016, 14:09. ? FINDINGS:? Image quality:? Excellent.? ? CSF spaces:? Basal cisterns are patent.? No extra-axial fluid collections.? The ventricles are symmetric in size and shape.? ? Brain:? No intracranial bleeds or masses.? Small lacunar infarcts are seen in left basal ganglia.? There is cerebral volume loss for age, with resultant ventricular and sulcal prominence.? There are periventricular and deep white matter chronic small vessel ischemic changes.? There is intracranial internal carotid artery atherosclero sis.? ? Skull and face:? Calvarium and visualized facial bones appear intact, without suspicious lesions.? ? Sinuses:? Visualized sinuses and mastoids are clear.? ? IMPRESSION:? 1. No CT evidence of acute intracranial abnormalities. 2. No gross acute skull fracture. 3.? Age-related atrophy and extensive white matter chronic small vessel ischemic changes. ? ? ? Dictated by: Frederick Rosas M.D. on 05/26/2021 at 0:38 ? ? ECG Data Interpretation: Atrial fibrillation rate 87 new from previous EKG in 2017 MDM Narrative Medical decision making narrative: Patient presents with generalized weakness. He is found to be quite hypertensive within positive troponin and fluid overload. He denies any symptoms at all. No obvious infection is found. Blood pressure really does not change much it appears that he is on clonidine for control. With a positive troponin persistently elevated blood pressure consistent with hypertensive emergency. He is also found to be fluid overloaded with out significant respiratory distress. Although while lying flat as oxygen does decrease his to about 88% any needs 1-2 L. He is given Lasix and nitroglycerin an attempt to diurese. He does urinate quite a bit. Blood pressure initially responded to labetalol but the effects did not last long. The patient is also found to be anemic today hemoglobin 9.3 hematocrit 27.2 previously on 05/09/2021 it was 11.7 and 34.3. He is guaiac negative no active bleeding. Possibly due to MGUS and CKD. The patient is also found to be mildly anemic his hemoglobin dropped 2 points in about 2 weeks without any active bleeding Patient is started after rn clinician with a positive troponin and given aspirin as well. Due to patient's chronic kidney disease elevated troponin and fluid overload is no patient will need to be transferred to higher level of care with Cardiology and Nephrology available. Significant bed shortage 0455 Dr. Booker, hospitalist at [facility] updated on patient's symptoms test results and happily accepted, recommends nitroglycerin drip for blood pressure control Critical Care Time Critical Care Time Critical Care Time: Yes Total Critical Care Time: 45 Attestation: The high probability of a clinically significant, sudden or life threatening deterioration of the [cardiovascular] system(s) required my full and direct attention, intervention and personal management. The aggregate critical care time was [45] minutes. This time is in addition to time spent performing reported procedures but includes the following: [x] Data Review and interpretation [x] Patient assessment and monitoring of vital signs [x] Documentation [x] Medication orders and management Discharge Plan Departure Patient Disposition: [facility] Clinical Impression: Hypertensive emergency, Acute non-ST elevation myocardial infarction (NSTEMI), New onset atrial fibrillation, Congestive heart failure Prescriptions: No Action simvastatin [Zocor] 40 mg tablet 40 mg PO Q DAY Qty: 90 3RF furosemide 40 mg tablet 40 mg PO DAILY 0RF hydrocodone-acetaminophen 10-325 mg tablet 1 tab PO Q4HP PRN (Reason: pain) Qty: 120 0RF Rx Instructions: Take one tablet by mouth up to every four hours as needed for pain. clonidine HCl 0.3 mg tablet 0.3 mg PO DAILY 0RF amlodipine 5 mg tablet 5 mg PO DAILY 0RF Label Comments: TAKE ONE TABLET BY MOUTH DAILY (DME) Disabled Parking Qty: 1 0RF Rx Instructions: Patient qualifies for disabled parking as per the attached form. calcitriol 0.5 mcg capsule 0.5 mcg PO DAILY 0RF trazodone 50 mg tablet 50 mg PO BEDTIME PRN (Reason: insomnia) Qty: 90 3RF trazodone 50 mg tablet 50 mg PO BEDTIME PRN (Reason: insomnia) Qty: 90 3RF A/B/C/D-E Vitamins Tablet 1 tab PO DAILY 0RF Rx Instructions: Vitamin D Referrals: Edis Hassan MD [Primary Care Provider] -
--- NOTE | 2021-05-25 23:30 | DI.RAD.S_ITS ---
PROCEDURE: XR CHEST 1V INDICATIONS: weakness TECHNIQUE: One view of the chest was acquired. COMPARISON: [facility], , CHEST 2 VIEW, 12/24/2012, 10:47. FINDINGS: Surgical changes and devices: There is prior right shoulder arthroplasty. Lungs and pleura: Increased interstitial reticular lung markings are noted bilaterally suggestive of pulmonary edema versus extensive pulmonary infiltrates. Mild elevation of left hemidiaphragm is noted with left basilar atelectasis. No pleural effusions or pneumothorax. Mediastinum: Tortuous thoracic aorta is seen. Heart size is enlarged. Bones and chest wall: No suspicious bony lesions. Overlying soft tissues appear unremarkable. IMPRESSION: Cardiomegaly and congestion with suggestion of pulmonary edema. Underlying bilateral pulmonary infiltrates cannot be excluded. No gross pneumothorax. Dictated by: Frederick Rosas M.D. on 05/26/2021 at 0:18 Approved by: Frederick Rosas M.D. on 05/26/2021 at 0:20
[2021-05-25 23:46] LABS: Add Manual Diff / Slide Review NO; Basophils Absolute Auto 0 /uL (0-100); Basophils Percent Auto 0.6 % (0-2); Eosinophils Absolute Auto 200 /uL (0-450); Eosinophils Percent Auto 2.4 % (2-4); Hematocrit 27.2 % (41-53); Hemoglobin 9.3 g/dL (13.5-17.5); Lymphocytes Absolute Auto 800 /uL (1100-4500); Monocytes Absolute Auto 700 /uL (0-900); Monocytes Percent Auto 9.5 % (3-14); Neutrophils Absolute Auto 5300 /uL (1500-7000); Neutrophils Percent Auto 75.5 % (50-75); Platelet Count 128 X10^3/uL (150-400); Red Cell Distribution Width 15.7 % (11.6-14.8)
[2021-05-25 23:56] LABS: Alanine Aminotransferase 17 IU/L (<50); Albumin 3.6 g/dL (3.5-5.0); Albumin Globulin Ratio 1.2 (1.0-2.8); Alkaline Phosphatase 132 U/L (38-126); Aspartate Aminotransferase 28 IU/L (17-59); Bilirubin Total 0.6 mg/dL (0.2-1.3); Blood Urea Nitrogen 60 mg/dL (9-20); Calcium 9.6 mg/dL (8.4-10.2); Carbon Dioxide 24 mmol/L (22-32); Chloride 102 mmol/L (98-107); Creatine Kinase 96 U/L (55-170); Estimated Glomerular Filt Rate 16.9 mL/min (>60); Globulin 3.1 g/dL (1.7-4.1); Glucose 114 mg/dL (80-110); HEMOLYSIS 20 (0-50); Lipase 29 U/L (23-300); Potassium 4.4 mmol/L (3.4-5.1); Sodium 133 mmol/L (137-145); Total Protein 6.7 g/dL (6.3-8.2)
[2021-05-26] VITALS (40 sets, daily range): BP systolic 140–196; BP diastolic 64–93; PULSE 59–98; RESP 14–27; O2SAT 89–97
[2021-05-26 00:01] LABS: Lactate (Lactic Acid) 1.1 mmol/L (0.7-2.1)
[2021-05-26 00:02] LABS: COVID19 -Nasal RAPID Negative (Negative)
[2021-05-26 00:08] LABS: NT-proBNP (BNP-Adult 18+) 14900 pg/mL (<450)
[2021-05-26 00:11] LABS: Troponin I 0.177 ng/mL (0.01-0.034)
[2021-05-26 00:13] LABS: Procalcitonin 0.26 ng/mL (<0.5)
[2021-05-26 00:45] LABS: INR 1.1 (0.9-1.3); PTT Partial Thromboplastin Tim 32 SECONDS (26.4-36.2); Prothrombin Time 12.4 SECONDS (10.1-12.7)
[2021-05-26 01:04] LABS: Appearance Urine UA CLEAR; Bilirubin Urine UA NEGATIVE (NEGATIVE); Color Urine UA YELLOW; Glucose Urine UA NEGATIVE (Negative); Ketones Urine UA NEGATIVE (NEGATIVE); Leukocyte Esterase Urine UA NEGATIVE (NEGATIVE); Nitrite Urine UA NEGATIVE (Negative); Occult Blood Urine UA 2+ (Negative); Protein Urine UA 2+ (Negative); Urobilinogen Urine UA 0.2 E.U./dL (0.2)
[2021-05-26 01:18] LABS: Bacteria Urine None Seen; Culture Indicated Urine Cult Not Indicated; RBC Urine None Seen (0-5/HPF); WBC Urine None Seen (0-5/HPF)
[2021-05-26] MEDS: FUROSEMIDE 100 MG/10 ML VIAL 60 MG IV (01:35)
[2021-05-26] MEDS: HEPARIN 5,000 UNIT/ML VIAL 4000 UNIT IV (01:36)
[2021-05-26] MEDS: NITROGLYCERIN 0.4 MG SL TAB SL (01:37)
[2021-05-26] MEDS: HEPARIN DRIP 25,000 UNIT/500 ML IV.SOLN 18.507 UNIT IV (01:38)
[2021-05-26 02:42] LABS: Troponin I 0.163 ng/mL (0.01-0.034)
[2021-05-26] MEDS: LABETALOL 20 MG/4 ML SYRINGE IV (03:44)
--- NOTE | 2021-05-26 03:49 | PC.NURSE ---
He was placed on oxygen 2 liters nasal cannula for sats dropping into upper 80's and labetelol for elevated b/p.Per DR cedillo written and verbal orders.
--- NOTE | 2021-05-26 04:02 | PC.NURSE ---
His b/p improved after labetalol given
[2021-05-26] MEDS: NITROGLYCERIN 50 MG/250 ML INFUS..BTL IV (04:53)
[2021-05-26 08:07] LABS: PTT Partial Thromboplastin Tim 89 SECONDS (26.4-36.2)
== END 2021-05-26 09:37 | disposition short-term general hospital (02) ==
PROVIDERS: Emergency Provider Emergency Medicine; PCP Internal Medicine
DX: I16.1 Hypertensive emergency (principal); I13.0 Hypertensive heart and chronic kidney disease with heart failure and stage 1 through stage 4 chronic kidney disease, or unspecified chronic kidney disease; I21.4 Non-ST elevation (NSTEMI) myocardial infarction; I48.91 Unspecified atrial fibrillation; I50.9 Heart failure, unspecified; N18.9 Chronic kidney disease, unspecified; Z20.822 Contact with and (suspected) exposure to COVID-19
CPT/HCPCS: 36415; 70450; 71045; 80053; 81001; 82550; 82553; 83605; 83690; 83880; 84145; 84484; 85025; 85610; 85730; 87040; 87635; 93005; 93010; 96365; 96366; 96368; 96375; 99284; 99291; C9803; J1644; J1940